=== PATIENT | male | born 1950 | race Caucasian/White ===

== ENCOUNTER 2016-10-04 07:02 | Day surgery (SDC) | payer BC ==
[~2016-10-04] VITALS: Ht 172.7 cm; Wt 58.6 kg
[~2016-10-04 07:02] MED LIST: BENA10TA2 PO; LACTATED RINGERS 1,000 ML IV SCH; SODIUM CHLORIDE FLUSH 3 ML SYR IV PRN
[2016-10-04 07:12] VITALS: BP 155/88
[2016-10-04] MEDS ORDERED: ALFENTANIL 500 MCG/ML (ALFENTA) 5 ML AMP IV ONE ×2 (08:07→08:08)
[2016-10-04] MEDS ORDERED: PROPOFOL 20 ML IV ONE (08:07)
[2016-10-04] MEDS ORDERED: MIDAZOLAM 2 MG/2 ML (VERSED) VIAL ONE (08:08)
[2016-10-04 08:35] VITALS: BP 127/79
[2016-10-04 08:53] VITALS: BP 134/78
--- NOTE | 2016-10-04 13:25 | OPERATIVE REPORT ---
DATE OF OPERATION: 10/04/2016 PRE-OPERATIVE DIAGNOSIS: Colon screening POST-OPERATIVE DIAGNOSIS: Normal colon OPERATIVE PROCEDURE: Total colonoscopy SURGEON: Aleks Jacobs MD ANESTHESIA: IV conscious sedation, Monitored Anesthesia Services POSITION: Left lateral decubitus FINDINGS: 1. Normal colon. 2. Good prep. OPERATIVE NOTE: Following satisfactory induction of analgesia a digital rectal exam was performed. This revealed normal sphincter tone. No rectal mass was palpable. Prostate was normal. Next the colonoscope was introduced per rectum and advanced under CO2 insufflation and direct vision to the cecum. The cecum was identified by the appendiceal orifice, convergence of the teniae, the ileocecal valve, as well as palpation and transillumination of the right lower quadrant. The above findings were noted. The above areas were carefully inspected as the scope was slowly withdrawn again. Retroflexed view in the rectum was normal. Excess insufflated CO2 was evacuated and the scope removed. The patient tolerated the procedure well and transferred to recovery in stable condition. RECOMMENDATIONS: In the absence of symptoms, recommend repeat colonoscopy in 10 years
== END 2016-10-04 09:06 | disposition home or self-care (01) ==
LOC: ASC 07:02
PROVIDERS: ATTEND Surgery
DX: Z12.11 Encounter for screening for malignant neoplasm of colon (principal); I10 Essential (primary) hypertension; Z87.891 Personal history of nicotine dependence
CPT/HCPCS: 45378; J2250; J7120